=== PATIENT | male | born 1965 | race Caucasian/White ===

== ENCOUNTER → 2017-09-03 | Outpatient (CLI) | payer BC ==
--- NOTE | 2017-09-03 20:23 | MR ---
EXAMINATION TYPE: MR lumbar spine wo con DATE OF EXAM: 09/03/2017 7:34 PM COMPARISON: NONE HISTORY: Lower back pain Multiplanar, MultiSpin echo imaging of the lumbar spine was performed. L1-L2: Normal disc appearance without desiccation. No herniation, protrusion or disc bulging. No ca nal stenosis is present. Foramina are patent bilaterally. L1 hemangioma. L2-L3: Normal disc appearance without desiccation. No herniation, protrusion or disc bulging. No ca nal stenosis is present. Foramina are patent bilaterally. L3-L4: Normal disc appearance without desiccation. No herniation, protrusion or disc bulging. No ca nal stenosis is present. Foramina are patent bilaterally. L3 hemangioma. L4-L5: Moderate disc desiccation is noted. Left paracentral disc herniation with extruded disc materi al noted. Disc material measures 1.7 x 0.7 cm. There is resultant left lateral recess stenosis and le ft foraminal encroachment. No evidence for central stenosis. L5-S1: Severe disc desiccation with vacuum disc noted. Degenerative endplate marrow changes seen. Pos terior disc bulge with annular tear. Mild effacement ventral thecal sac. Retrolisthesis L5 on S1 of 3 mm. Severe facet joint arthropathy with mild bilateral foraminal encroachment. Lumbar segments are intact. No paraspinal masses are identified. Conus medullaris has a normal appe arance. IMPRESSION: 1. Extruded disc herniation at L4-5 paracentrally and to the left with left lateral recess stenosis. 2. Severe disc desiccation L5-S1. Grade 1 retrolisthesis at this level. Mild bilateral foraminal encr oachment.
== END | disposition home or self-care (01) ==
LOC: RADMRIMAIN 18:42
PROVIDERS: ATTEND Physical Medicine & Rehabilitation
DX: M48.061 Spinal stenosis, lumbar region without neurogenic claudication (principal); M51.27 Other intervertebral disc displacement, lumbosacral region; M43.16 Spondylolisthesis, lumbar region
CPT/HCPCS: 72148

== ENCOUNTER 2019-12-22 08:35 | Day surgery (SDC) | payer BC ==
[2019-12-21 12:01] VITALS: BMI 27.6
[2019-12-22] MEDS ORDERED: LACTATED RINGERS 1,000 ML IV ONE (08:54)
[2019-12-22] MEDS ORDERED: LIDOCAINE 1% (10MG/ML) FOR IV START INTRADERMA ONE (08:57)
[2019-12-22] MEDS ORDERED: LIDOCAINE 1% INJ 10MG/ML (20 ML MDV) ONE (08:59)
[2019-12-22] MEDS ORDERED: PROPOFOL 10 MG/ML 20 ML VIAL IV ONE (08:59)
[2019-12-22 09:16] VITALS: TEMP 97
--- NOTE | 2019-12-22 09:43 | P.PCN ---
Date of Procedure: 12/22/19 Description of Procedure: BRIEF HISTORY: 54-year-old male presenting to the hospital for outpatient colonoscopy for screening for malignant neoplasm colon. Patient reports last colonoscopy was 7 years ago and he does believe he had polyps at that time. He reports family history of colon cancer in his grandmother. PROCEDURE PERFORMED: Colonoscopy. PREOPERATIVE DIAGNOSIS: Screening for malignant neoplasm of the colon, last colonoscopy 7 years ago. ESTIMATED BLOOD LOSS: Minimal. IV sedation per Anesthesia. PROCEDURE: After informed consent was obtained, the patient, was brought into the endoscopy unit. IV sedation was administered by Anesthesia under continuous monitoring. Digital rectal examination was normal. Initially the Olympus CF-190 flexible video colonoscope was then inserted in the rectum, gradually advanced into the cecum without any difficulty. Careful examination was performed as the scope was gradually being withdrawn. Ileocecal valve and the appendiceal orifice were visualized and appeared normal. Prep was excellent. Mucosa of the cecum, ascen ding colon, transverse colon, descending colon, sigmoid colon, and rectum appeared normal. Retroflexion was performed in the rectum and no lesions were seen. The patient tolerated the procedure well. IMPRESSION: Normal-appearing colon from rectum to cecum. RECOMMENDATIONS: Findings of this examination were discussed with the patient and his . Okay to resume diet. Okay to resume medications. Would recommend repeat colonoscopy in 5 years for family history of colon cancer and personal history of colon polyps.
[2019-12-22 09:49] VITALS: BP 132/92; PULSE 68; RESP 16
== END 2019-12-22 10:33 | disposition home or self-care (01) ==
LOC: ORWHC2ENDO 08:35
PROVIDERS: ATTEND Internal Medicine
DX: Z12.11 Encounter for screening for malignant neoplasm of colon (principal); Z86.010 Personal history of colon polyps; Z80.0 Family history of malignant neoplasm of digestive organs; Z87.891 Personal history of nicotine dependence; Z98.890 Other specified postprocedural states
CPT/HCPCS: J2001; J2704; G0121